=== PATIENT | female | born 1945 | race Caucasian/White ===

== ENCOUNTER 2017-04-28 13:32 | Outpatient (CLI) | payer MEDICARE, OTHER ==
[~2017-04-28] VITALS: Ht 175.3 cm; Wt 67.7 kg
[2017-04-28] MEDS ORDERED: FLUO20CA42 PO (13:52)
[2017-04-28] MEDS ORDERED: SULF500T7 PO (13:52)
[2017-04-28] MEDS ORDERED: DICL75TA2 PO (13:52)
[2017-04-28] MEDS ORDERED: LOSA50TA36 PO (13:52)
[2017-04-28] MEDS ORDERED: RANI-515 PO (13:52)
[2017-04-28] MEDS ORDERED: ESTR0.5T PO (13:52)
[2017-04-28] MEDS ORDERED: LEVO50TA6 PO (13:52)
[2017-04-28] MEDS ORDERED: MULT-1021 PO (13:53)
[2017-04-28] MEDS ORDERED: VITA1CAP PO (13:53)
[2017-04-28] MEDS ORDERED: TERA2CAP4 PO (13:53)
[2017-04-28] MEDS ORDERED: DILT180C54 PO (13:53)
[2017-04-28] MEDS ORDERED: MAGN100T5 PO (13:53)
[2017-04-28] MEDS ORDERED: UBID400C6 PO (13:53)
[2017-04-28] MEDS ORDERED: FLUT9.9S NS (13:53)
[2017-04-28] MEDS ORDERED: FA/V1CAP3 PO (13:53)
[2017-04-28] MEDS ORDERED: L.AC1CAP6 PO (13:53)
[2017-04-28 13:56] VITALS: BP 128/80
[2017-04-28 14:40] LABS: BASOPHILS # (AUTO) 0.1 10^3/uL (0.0-0.1); BASOPHILS % (AUTO) 1 % (0-10); EOSINOPHILS % (AUTO) 0 % (0-10); LYMPHOCYTES # (AUTO) 1.1 X 10^3 (1.0-4.0); LYMPHOCYTES % (AUTO) 18 % (12-44); MEAN CORPUSCULAR HEMOGLOBIN 31 PG (25-34); MEAN CORPUSCULAR HGB CONC 34 G/DL (32-36); MEAN CORPUSCULAR VOLUME 92 FL (80-99); MEAN PLATELET VOLUME 11.2 FL (7.4-10.4); MONOCYTES # (AUTO) 0.6 X 10^3 (0.0-1.0); MONOCYTES % (AUTO) 10 % (0-12); NEUTROPHILS # (AUTO) 4.3 X 10^3 (1.8-7.8); NEUTROPHILS % (AUTO) 71 % (42-75); PLATELET COUNT 217 10^3/uL (130-400); RED BLOOD COUNT 4.23 10^6/uL (4.35-5.85); RED CELL DISTRIBUTION WIDTH 14.4 % (10.0-14.5)
[2017-04-28 15:02] LABS: ANION GAP 5 MMOL/L (5-14); BLOOD UREA NITROGEN 18 MG/DL (7-18); BUN/CREATININE RATIO 21; CALCIUM 9.1 MG/DL (8.5-10.1); CARBON DIOXIDE 27 MMOL/L (21-32); CHLORIDE 102 MMOL/L (98-107); CREATININE SERUM 0.85 MG/DL (0.60-1.30); GFR ESTIMATED > 60; GLUCOSE 103 MG/DL (70-105); POTASSIUM 3.5 MMOL/L (3.6-5.0); SODIUM 134 MMOL/L (135-145)
[2017-04-29] MEDS ORDERED: HYDR-3812 PO (10:10)
== END 2017-04-28 15:09 | disposition home or self-care (01) ==
LOC: PREOP 13:32
PROVIDERS: ATTEND Otolaryngology Otolaryngology/Facial Plastic Surgery
DX: Z01.818 Encounter for other preprocedural examination (principal); K11.8 Other diseases of salivary glands
CPT/HCPCS: 36415; 80048; 85025; 87081; 93005